=== PATIENT | female | born 1950 | race Caucasian/White ===

== ENCOUNTER 2017-01-26 06:57 | Day surgery (SDC) | payer MEDICARE, OTHER ==
[~2017-01-26] VITALS: Ht 156.2 cm; Wt 69.1 kg
[~2017-01-26 06:57] MED LIST: GABA-529 PO; LEVO150 PO; PRED10 PO
[2017-01-26] MEDS ORDERED: BENZOCAINE 20% 50 MCG/SPRAY 57 GM TP ONE (06:58)
[2017-01-26] MEDS ORDERED: LIDOCAINE HCL 4% 50 ML SOLUTION TP ONE (06:58)
[2017-01-26] MEDS ORDERED: LIDOCAINE HCL 2% 30 ML JELLY TP ONE (06:58)
[2017-01-26] MEDS ORDERED: ALBUTEROL SULFATE 2.5 MG/0.5 ML NEB SOLUTION NEB ONE (06:58)
[2017-01-26] MEDS ORDERED: SODIUM CHLORIDE 0.9% 1,000 ML IV ONE ×2 (07:00→07:27)
[2017-01-26] MEDS ORDERED: MIDAZOLAM HCL 2 MG/2 ML VIAL ONE (07:49)
[2017-01-26] MEDS ORDERED: FentaNYL CITRATE-PF 100 MCG/2 ML VIAL ONE (07:49)
[2017-01-26] MEDS ORDERED: VERA80 PO (07:52)
[2017-01-26] MEDS ORDERED: CALC-26 PO (07:52)
[2017-01-26] MEDS ORDERED: OMEP20 PO (07:52)
[2017-01-26] MEDS ORDERED: MONT10TA21 PO (07:52)
[2017-01-26] MEDS ORDERED: FLUT16H NASAL (07:52)
[2017-01-26] MEDS ORDERED: ALBU8.5H8 IH (07:52)
[2017-01-26] MEDS ORDERED: MethylPREDNISolone SOD SUCC 125 MG/2 ML VIAL IVP ONE (09:30)
[2017-01-26] MEDS ORDERED: MethylPREDNISolone SOD SUCC 125 MG/2 ML VIAL ONE (09:45)
[2017-01-26] MEDS ORDERED: OXYGEN THERAPY IH SCH (20:00)
== END 2017-01-26 13:05 | disposition home or self-care (01) ==
LOC: SURGERY 06:57
PROVIDERS: ATTEND Internal Medicine Critical Care Medicine
DX: J38.4 Edema of larynx (principal); B37.0 Candidal stomatitis; K21.9 Gastro-esophageal reflux disease without esophagitis; E03.9 Hypothyroidism, unspecified; D71 Functional disorders of polymorphonuclear neutrophils; J84.10 Pulmonary fibrosis, unspecified; K27.9 Peptic ulcer, site unspecified, unspecified as acute or chronic, without hemorrhage or perforation; Z79.899 Other long term (current) drug therapy; Z98.890 Other specified postprocedural states; Z87.891 Personal history of nicotine dependence
CPT/HCPCS: 31623; 31624; 71010; 87015 ×2; 87070; 87101; 87147; 87205; 87220; 88108; 88184; 88185; 88312; 93005; J2250; J2930; J3010; J7030